=== PATIENT | female | born 1980 | race Caucasian/White ===

== ENCOUNTER → 2017-11-12 11:23 | Outpatient (CLI) | payer MEDICAID, SELFPAY ==
[2017-11-16 12:48] LABS: HPV APTIMA, High Risk Negative (Negative)
== END ==
PROVIDERS: Family Provider Internal Medicine; PCP Internal Medicine; Visit Provider Obstetrics & Gynecology
DX: Z01.419 Encounter for gynecological examination (general) (routine) without abnormal findings (principal); Z12.4 Encounter for screening for malignant neoplasm of cervix
CPT/HCPCS: 88175; G0145

== ENCOUNTER → 2018-02-06 10:02 | Outpatient (CLI) | payer MEDICAID, SELFPAY ==
--- NOTE | 2018-02-06 10:04 | US_ITS ---
STUDY: ULTRASOUND OF THE FEMALE PELVIS - COMPLETE REASON FOR EXAM: Female, 37 years old. Dysfunctional uterine bleeding. LMP: January 29, 2018. TECHNIQUE: Transabdominal and Transvaginal TECHNICAL QUALITY: Adequate. COMPARISON: None. FINDINGS: The uterus is anteverted and is in a midline position. The uterus measures 7.5 cm x 4.4 cm x 3.6 cm. Normal uterine cervix. The endometrium measures 5.0 mm in thickness, and is hyperechoic. There is no demonstrated endometrial mass. There is no demonstrated myometrial mass. I.U.D. - The patient does not have an I.U.D. The right ovary is visualized. The right ovary measures 3.1 cm x 2.4 cm x 1.9 cm. There is no right ovarian cyst or ovarian mass. There is no visualized right adnexal mass or complex lesion. There is normal arterial and normal venous vascularity. The left ovary is visualized. The left ovary measures 2.9 cm x 2.8 cm x 2.0 cm. There is a 2.1 cm x 2.2 cm x 1.1 cm cyst in the left ovary. Focal calcification is seen in the right ovary. There is no visualized left adnexal mass or complex lesion. There is normal arterial and normal venous vascularity. There is no fluid in the cul-de-sac. The pre void volume of the bladder was 296 ml. Polycystic ovary disease: No. US/Pelvic (Non ) IMPRESSION: 2.1 cm x 2.2 cm x 1.1 cm cyst in the left kidney. Electronically Signed: Angel Ramon MD at 14:27 EDT Tel [phone], Service support ,
--- NOTE | 2018-02-06 10:38 | US_ITS ---
STUDY: ULTRASOUND OF THE FEMALE PELVIS - COMPLETE REASON FOR EXAM: Female, 37 years old. Dysfunctional uterine bleeding. LMP: January 29, 2018. TECHNIQUE: Transabdominal and Transvaginal TECHNICAL QUALITY: Adequate. COMPARISON: None. FINDINGS: The uterus is anteverted and is in a midline position. The uterus measures 7.5 cm x 4.4 cm x 3.6 cm. Normal uterine cervix. The endometrium measures 5.0 mm in thickness, and is hyperechoic. There is no demonstrated endometrial mass. There is no demonstrated myometrial mass. I.U.D. - The patient does not have an I.U.D. The right ovary is visualized. The right ovary measures 3.1 cm x 2.4 cm x 1.9 cm. There is no right ovarian cyst or ovarian mass. There is no visualized right adnexal mass or complex lesion. There is normal arterial and normal venous vascularity. The left ovary is visualized. The left ovary measures 2.9 cm x 2.8 cm x 2.0 cm. There is a 2.1 cm x 2.2 cm x 1.1 cm cyst in the left ovary. Focal calcification is seen in the right ovary. There is no visualized left adnexal mass or complex lesion. There is normal arterial and normal venous vascularity. There is no fluid in the cul-de-sac. The pre void volume of the bladder was 296 ml. Polycystic ovary disease: No. US/Transvaginal Non- IMPRESSION: 2.1 cm x 2.2 cm x 1.1 cm cyst in the left kidney. Electronically Signed: Anegl Ramon MD at 14:27 EDT Tel [phone], Service support ,
== END ==
PROVIDERS: Family Provider Internal Medicine; PCP Internal Medicine; Visit Provider Obstetrics & Gynecology
DX: N93.8 Other specified abnormal uterine and vaginal bleeding (principal)
CPT/HCPCS: 76830; 76856; 93976

== ENCOUNTER 2018-03-27 05:46 | Day surgery (SDC) | payer MEDICAID, SELFPAY ==
[2018-03-13 13:02] VITALS: BP 120/70; PULSE 93; RESP 16; TEMP 36.8; O2SAT 99; BMI 18.9
[2018-03-13 15:24] LABS: Hematocrit 43.6 % (37-47); Hemoglobin 14.3 g/dl (12.0-15.0); Mean Corp Hgb Conc 32.8 g/gl (32-36); Mean Corpuscular Hgb 30.5 pg (27.0-32.0); Mean Platelet Vol. 10.6 fl (6.2-12.0); Platelet Count 256 K/mm3 (150-450); RBC Distribution Width CV 12.1 % (11.6-14.6); Red Blood Count 4.69 M/mm3 (4.2-5.4); Scan Indicated on CBC? Y/N NO
[2018-03-13 15:33] LABS: International Normalized Ratio 1.1; Prothrombin Time (Protime)PT. 14.2 SECONDS (11.7-14.9)
[2018-03-13 15:34] LABS: Partial Thromboplast Time 31.2 Seconds (24.1-36.2)
[2018-03-13 15:56] LABS: AST(SGOT) 12 U/L (15-37); Alanine Aminotransfer ALT/SGPT 16 U/L (13-56); Alkaline Phosphatase 52 U/L (45-117); Anion Gap 6 (5-15); BUN 10 mg/dL (7-18); BUN/Creat Ratio 12.8 RATIO (10-20); Bilirubin, Direct 0.15 mg/dL (0.00-0.30); Calcium,Total 8.6 mg/dL (8.5-10.1); Chloride 106 mmol/L (98-107); Creatinine, Serum 0.78 mg/dL (0.55-1.02); EST Glomerular Filtration Rate 89 mL/min (>60); Est Glom Filt Rate - Afr Amer 107 mL/min (>60); Estimated Creatinine Clearance 83.74 ml/min; Globulin 2.9 g/dL (2.2-4.2); Glucose 54 mg/dL (74-106); Potassium 4.1 mmol/L (3.5-5.1); Protein, Total 6.9 g/dL (6.4-8.2); Sodium Level 141 mmol/L (136-145)
[2018-03-27] VITALS (12 sets, daily range): BP systolic 104–125; BP diastolic 59–90; PULSE 65–115; RESP 16–18; TEMP 36.4–36.9; O2SAT 97–100; BMI 18.9
[2018-03-27 06:16] LABS: Internal QC Validated? YES +Cl - CLEAR BKGD; Pregnancy, Urine Negative Negative
[2018-03-27 06:31] LABS: Anion Gap 8 (5-15); BUN 10 mg/dL (7-18); BUN/Creat Ratio 11.4 RATIO (10-20); Calcium,Total 8.7 mg/dL (8.5-10.1); Chloride 107 mmol/L (98-107); Creatinine, Serum 0.88 mg/dL (0.55-1.02); EST Glomerular Filtration Rate 77 mL/min (>60); Est Glom Filt Rate - Afr Amer 93 mL/min (>60); Estimated Creatinine Clearance 74.22 ml/min; Glucose 74 mg/dL (74-106); Potassium 3.7 mmol/L (3.5-5.1); Sodium Level 141 mmol/L (136-145)
[2018-03-27] MEDS: Heparin Injection (Vial) 5,000 UNIT/ML VIAL 5000 UNIT SC ×3 (06:31→21:07)
--- NOTE | 2018-03-27 07:30 | HYST_PTH ---
PATIENT: FATOUMATA SALINAS [place] [facility] [id number] AGE/SX: 37/F ROOM: RE03/27/[address]: Dr. Mone Barahona MD : 1980 BED: DIS: 03/28/2018 SPEC #: [id number] RECD: 03/27/18 11:05 STATUS: SARAH JESENIA #: [id number] LORI: 03/27/18 07:[address]: Mone Barahona DEPT: SURGICAL PATHOLOGY RECD BY: Wally Pacheco ENTERED: 03/27/18 11:54 SP TYPE: HYSTERECT OTHR DR: Dr. Adrianne Reeves DO Tissues: Uterus, NOS Procedures: Surgery Specimen Level V HEADER OPERATION: Laparoscopic robotic assisted vaginal hysterectomy, bilateral salpingectomy PRE-OP DIAGNOSIS: Excessive and frequent menstruation with irregular cycle TISSUE SUBMITTED: Uterus, cervix, bilateral fallopian tubes MICROSCOPIC DIAGNOSIS Uterus, cervix and bilateral fallopian tubes, vaginal hysterectomy and bilateral salpingectomy: Cervix ? mild chronic cystic cervicitis. Endometrium ? weakly proliferative endometrium. Myometrium - no pathologic diagnosis. Bilateral fallopian tubes - no pathologic diagnosis. Left paratubal cyst. SJ:agustina 03/28/18 MICROSCOPIC DESCRIPTION Slides are reviewed. GROSS DESCRIPTION Received in fixative is one container labeled with the patient's name and designated uterus. The specimen consists of a uterus with attached cervix and attached right and left fallopian tubes. The uterus with cervix measures 8.3 x 5 x 4 and weighs 66 gm. The ectocervix is oval. No ectocervical mass lesions are identified. The endocervical canal measures 3.4 cm in length and is grossly unremarkable. The elongated endometrium measures 3 x 1.5 cm. The endometrium is light brown, velvety and glistening and measures up to 0.1 cm in thickness. The myometrium measures 2 cm in average thickness and is free of mass lesions. The right and left fallopian tubes are similar in appearance with both averaging 5.5 cm in length and 0.6 cm in average diameter. Both right and left fallopian tubes have normal fimbriated ends. No mass lesions are identified. The soft tissue adjacent to the left fallopian tube contains a smooth, glistening cyst containing clear fluid. The cyst measures 0.8 cm in greatest dimension. Picture Painter sections are submitted as follows: 1 - anterior cervix, 2 - posterior cervix, 3 & 4 - anterior uterine wall, 5 & 6 - posterior uterine wall, 7 ? right fallopian tube, 8 ? left fallopian tube and paratubal cyst. / AM:agustina 03/27/18 TC:3 CPT: 24881
--- NOTE | 2018-03-27 09:01 | PCM.OPRPT ---
Problem List (1) Irregular menstrual bleeding Status: Acute Report of Operation Date of Procedure: 03/27/18 Pre-Operative Diagnosis: Irregular menses Post-Operative Diagnosis: Same Surgery/Procedure Performed:: Robotic assisted vaginal hysterectomy with bilateral salpingectomy Description of Surgical Findings:: Uterus was sounded to approximately 8-1/2 cm in a anteflexed position bilateral adnexa were noted to be within normal limits and fully mobile upon entry into the abdominal cavity via the robot it was noted that the left ovary had a luteal phase cyst present and other ovary was noted to be normal. Uterus was noted to be fully mobile and appropriate size. Was notation of scar tissue in the right upper quadrant upon entry into the abdominal cavity from the liver to the abdominal sidewall of a mild nature body cleaner: Thelma Pearl Type of Anesthesia:: General Anesthesiologist: Jose Dunaway Special Medications: Clindamycin IV and gentamicin IV both preoperatively Specimen's removed: cervix, uterus, bilateral fallopian tubes Drains: None Estimated Blood Loss (mL): 150 cc Fluids Replaced: Lactated Ringer's Description of Procedure: Patient presented to the preoperative area after undergoing a bowel prep in the home setting. Basic metabolic panel was noted to be stable before entering to the surgery suite. Upon entry into the surgery suite placed was placed on the sandbag along with monitor placement. She underwent a general anesthetic. Patient was prepped and draped in the normal sterile fashion. She had been placed in dorsal lithotomy position via the Montez stirrups. Test was performed and noted to be without movement of the patient. The Pitts catheter was inserted after patient underwent a general anesthetic followed by weight is taken to the vagina. 2 stitches of 0 Vicryl suture were placed at the 3 and 9 o'clock position to anchor to the medium-sized V care which was assembled to the cervix for uterine manipulation. After V care was placed all instruments removed from the vagina except for the Pitts catheter and the V care. Changing gloves and moving to the top of the patient notation of the fundal area of the uterus was made and 12 cm above this area was notation of placement of the camera. An 8 mm incision was made with the scalpel supraumbilically and Veress needle was placed through this incision. Water test verified a placement into the abdominal cavity. Removal of the Veress needle was replaced by the 8 mm camera nondisposable robotic trocar. Verification of entry into the abdominal cavity occurred with camera placement. Left and right robotic arms were then sequentially placed under direct visualization in the left and right mid quadrants and hemostasis was noted. Each of these trochars were 8 mm nondisposable robotic trocar types. The left upper quadrant had a 5 mm direct placement of a disposable trocar for my pathology assistant in the right upper quadrant had a 8 mm air seal trocar placement under direct visualization also for my pathology assistant. At this point in time the robot was docked to the patient's side in a parallel fashion. The camera was assembled to the supraumbilical trocar while the left robotic arm became the vessel sealer in the right robotic arm became the monopolar mario. At this point in time I the gowned and moved to the console of the robot to take over control of the robot. Normal anatomy was evaluated and ureters noted be well away from the area of anticipated surgery. The left round ligament was grasped cauterized and transected the broad ligament into anterior posterior leaves. The left fallopian tube was then grasped and the mesosalpinx was cauterized and transected followed by cauterization and transection of the uterine ovarian ligament. Further development of the broad ligament in skeletonization of the uterine vasculature occurred on the patient's left side the left uterine vessels were then cauterized and transected. Trying to the patient's right side the right round ligament was then grasped cauterized and transected the broad ligament into anterior posterior leaves and further developing the vesicouterine peritoneum the right fallopian tube was transected with the mesosalpinx by cauterization and transection followed by the cauterization and transection of the uterine ovarian ligament on the patient's right side. This led to further skeletonization of the uterine vasculature on the patient's right side the right area of the right uterine vasculature was then cauterized and transected. The cardinal ligaments and uterosacral ligaments were cauterized transected bilaterally for the development of the vesicouterine peritoneum occurred incision at the 6:00 region of the cervix occurred which was the posterior cul-de-sac region and this was carried in a counterclockwise fashion to the 12:00 region that was then continued from 12:00 region in the continued counterclockwise fashion down to the 6:00 region for complete transection of the cervix away from the vaginal cuff region. The cervix uterus bilateral fallopian tubes were then removed through the vagina. Irrigation of the pelvis occurred by my pathology assistant and vaginal tampon had been placed to continue the pneumoperitoneum. The instruments were then changed to the left robotic arm becoming the progress in the right robotic arm becoming the Oral suture cut. My pathology assistant sequentially gave me a 15 cm 0 Vicryl sutures the first being placed to the ureteral sacral cardinal complex in the vagina for an anchor stitch this needle was removed and the exact same stitch with the exact same fashion was used on the patient's right side as an anchor stitch of the vaginal cuff to the uterosacral cardinal complex. 2 additional 0 Vicryl sutures were then placed by my pathology assistant into the pelvis sequentially to the [id number] stitches at the vaginal cuff could occur for vaginal cuff closure. All needles were accounted for immediately after removal by my pathology assistant. Irrigation of the pelvis once again occurred peristalsis of the bilateral ureters was noted in their positions were well away from the area of operation. Oriana was then placed into the pelvis and placed at the vaginal cuff region for added hemostasis it was at this point in time and all instruments were removed from the abdominal cavity by removal of all trochars. Release of the CO2 gas to have been placed into the abdominal cavity was also released the incisions ?5 were closed with 4-0 Monocryl in a subcuticular fashion. The sponge instrument and needle counts were correct ?2. Grafts/Implants Used: None - Complications None - Admit VTE Documentation VTE Present on Admission: No VTE Mechan Device Prophylaxis: SCD's VTE Pharm Prophylaxis ordered?: Yes
--- NOTE | 2018-03-27 09:11 | OP.PCM_ITS ---
Problem List (1) Irregular menstrual bleeding Status: Acute Report of Operation Date of Procedure: 03/27/18 Pre-Operative Diagnosis: Irregular menses Post-Operative Diagnosis: Same Surgery/Procedure Performed:: Robotic assisted vaginal hysterectomy with bilateral salpingectomy Description of Surgical Findings:: Uterus was sounded to approximately 8-1/2 cm in a anteflexed position bilateral adnexa were noted to be within normal limits and fully mobile upon entry into the abdominal cavity via the robot it was noted that the left ovary had a luteal phase cyst present and other ovary was noted to be normal. Uterus was noted to be fully mobile and appropriate size. Was notation of scar tissue in the right upper quadrant upon entry into the abdominal cavity from the liver to the abdominal sidewall of a mild nature landscaping supervisor: Thelma Pearl Type of Anesthesia:: General Anesthesiologist: Jose Dunaway Special Medications: Clindamycin IV and gentamicin IV both preoperatively Specimen's removed: cervix, uterus, bilateral fallopian tubes Drains: None Estimated Blood Loss (mL): 150 cc Fluids Replaced: Lactated Ringer's Description of Procedure: Patient presented to the preoperative area after undergoing a bowel prep in the home setting. Basic metabolic panel was noted to be stable before entering to the surgery suite. Upon entry into the surgery suite placed was placed on the sandbag along with monitor placement. She underwent a general anesthetic. Patient was prepped and draped in the normal sterile fashion. She had been placed in dorsal lithotomy position via the Montez stirrups. Test was performed and noted to be without movement of the patient. The Pitts catheter was inserted after patient underwent a general anesthetic followed by weight is taken to the vagina. 2 stitches of 0 Vicryl suture were placed at the 3 and 9 o 'clock position to anchor to the medium-sized V care which was assembled to the cervix for uterine manipulation. After V care was placed all instruments removed from the vagina except for the Pitts catheter and the V care. Changing gloves and moving to the top of the patient notation of the fundal area of the uterus was made and 12 cm above this area was notation of placement of the camera. An 8 mm incision was made with the scalpel supraumbilically and Veress needle was placed through this incision. Water test verified a placement into the abdominal cavity. Removal of the Veress needle was replaced by the 8 mm camera nondisposable robotic trocar. Verification of entry into the abdominal cavity occurred with camera placement. Left and right robotic arms were then sequentially placed under direct visualization in the left and right mid quadrants and hemostasis was noted. Each of these trochars were 8 mm nondisposable robotic trocar types. The left upper quadrant had a 5 mm direct placement of a disposable trocar for my special education assistant in the right upper quadrant had a 8 mm air seal trocar placement under direct visualization also for my special education assistant. At this point in time the robot was docked to the patient's side in a parallel fashion. The camera was assembled to the supraumbilical trocar while the left robotic arm became the vessel sealer in the right robotic arm became the monopolar mario. At this point in time I the gowned and moved to the console of the robot to take over control of the robot. Normal anatomy was evaluated and ureters noted be well away from the area of anticipated surgery. The left round ligament was grasped cauterized and transected the broad ligament into anterior posterior leaves. The left fallopian tube was then grasped and the mesosalpinx was cauterized and transected followed by cauterization and transection of the uterine ovarian ligament. Further development of the broad ligament in skeletonization of the uterine vasculature occurred on the patient's left side the left uterine vessels were then cauterized and transected. Trying to the patient's right side the right round ligament was then grasped cauterized and transected the broad ligament into anterior posterior leaves and further developing the vesicouterine peritoneum the right fallopian tube was transected with the mesosalpinx by cauterization and transection followed by the cauterization and transection of the uterine ovarian ligament on the patient's right side. This led to further skeletonization of the uterine vasculature on the patient's right side the right area of the right uterine vasculature was then cauterized and transected. The cardinal ligaments and uterosacral ligaments were cauterized transected bilaterally for the development of the vesicouterine peritoneum occurred incision at the 6:00 region of the cervix occurred which was the posterior cul-de-sac region and this was carried in a counterclockwise fashion to the 12:00 region that was then continued from 12:00 region in the continued counterclockwise fashion down to the 6:00 region for complete transection of the cervix away from the vaginal cuff region. The cervix uterus bilateral fallopian tubes were then removed through the vagina. Irrigation of the pelvis occurred by my special education assistant and vaginal tampon had been placed to continue the pneumoperitoneum. The instruments were then changed to the left robotic arm becoming the progress in the right robotic arm becoming the Oral suture cut. My special education assistant sequentially gave me a 15 cm 0 Vicryl sutures the first being placed to the ureteral sacral cardinal complex in the vagina for an anchor stitch this needle was removed and the exact same stitch with the exact same fashion was used on the patient's right side as an anchor stitch of the vaginal cuff to the uterosacral cardinal complex. 2 additional 0 Vicryl sutures were then placed by my special education assistant into the pelvis sequentially to the [id number] stitches at the vaginal cuff could occur for vaginal cuff closure. All needles were accounted for immediately after removal by my special education assistant. Irrigation of the pelvis once again occurred peristalsis of the bilateral ureters was noted in their positions were well away from the area of operation. Oriana was then placed into the pelvis and placed at the vaginal cuff region for added hemostasis it was at this point in time and all instruments were removed from the abdominal cavity by removal of all trochars. Release of the CO2 gas to have been placed into the abdominal cavity was also released the incisions ?5 were closed with 4-0 Monocryl in a subcuticular fashion. The sponge instrument and needle counts were correct ?2. Grafts/Implants Used: None - Complications None - Admit VTE Documentation VTE Present on Admission: No VTE Mechan Device Prophylaxis: SCD's VTE Pharm Prophylaxis ordered?: Yes
[2018-03-27] MEDS: Morphine 2 MG/ML Syringe IV ×2 (12:08→15:32)
[2018-03-27] MEDS: Phenazopyridine 95 MG Tablet 190 MG PO ×2 (15:31→20:59)
[2018-03-27] MEDS: Lactated Ringers 1,000 ML 125 ML IV (15:31)
[2018-03-27] MEDS: Metoclopramide 10 MG/2 ML Vial IV ×2 (15:31→21:23)
[2018-03-27] MEDS: oxyCODONE 5 MG Tablet PO (20:58)
[2018-03-28 03:00] VITALS: BP 99/59; PULSE 68; RESP 16; TEMP 36.9; O2SAT 98
[2018-03-28] MEDS: oxyCODONE 5 MG Tablet PO ×3 (05:06→14:48)
[2018-03-28] MEDS: Phenazopyridine 95 MG Tablet 190 MG PO ×2 (05:07→14:48)
[2018-03-28] MEDS: Heparin Injection (Vial) 5,000 UNIT/ML VIAL 5000 UNIT SC (05:09)
[2018-03-28] MEDS: Metoclopramide 10 MG/2 ML Vial IV ×2 (05:09→14:49)
[2018-03-28 07:11] VITALS: O2SAT 96
--- NOTE | 2018-03-28 09:25 | DCINST_ITS ---
Discharge Diet: - - no beef, pork or fresh vegetables 2 weeks after surgery Discharge Activity: Return to Normal Activity, May Not Drive - while taking narcotic pain medications., May Shower, - - Ambulate often with periods of rest in between May shower in (days): 0 - TODAY May resume sexual activity in: 6-8 weeks Weight Bearing Status: Full weight bearing Lifting Restrictions: 5 pounds Call your doctor if your incision/area has: Continuous Slow Oozing, Sudden Increased Bleeding, Increased Pain/ Swelling, Increased Redness, Foul Smelling Discharge Call your doctor if you observe: Fever of 101 or Higher, Inability to urinate, Inability to have a bowel movement, Using more than one pad per hour Remove Dressing in (days):: 0 - TODAY. Leave incisions open to air Cleanse incision/area with: Soap & Water Allergies/Adverse Reactions: Allergies amitriptyline Allergy (Verified 08/29/17 09:53) Other amoxicillin [From Augmentin] Allergy (Verified 03/13/18 12:53) Hives cephalexin monohydrate [From Keflex] Allergy (Verified 08/29/17 09:53) Hives clavulanic acid [From Augmentin] Allergy (Verified 03/13/18 12:53) Hives gabapentin [From Neurontin] Allergy (Verified 08/29/17 09:53) Other levofloxacin [From Levaquin] Allergy (Verified 03/13/18 12:53) Hives Penicillins Allergy (Verified 08/29/17 09:53) Hives sulfamethoxazole [From Bactrim] Allergy (Verified 08/29/17 09:53) Other trimethoprim [From Bactrim] Allergy (Verified 08/29/17 09:53) Other Medications to take at Discharge Albuterol IH (ProAir) [Proair Hfa (SP)Vent Pts] 1 - 2 puff INHALATION Q6H PRN PRN 08/29/17 Cyclobenzaprine [Flexeril] 10 mg PO DAILY 08/29/17 Esomeprazole Mag Trihydrate [Nexium] 40 mg PO DAILY 08/29/17 Lorazepam [Ativan] 0.5 mg PO DAILY PRN PRN 08/29/17 Norethindrone 0.35 mg PO DAILY 08/29/17 Ibuprofen 600 mg PO TID PRN #30 tab 09/05/17 Aspirin [Aspirin, Baby] 81 mg PO DAILY@0800 03/13/18 Primary Care Physician: Adrianne Reeves DO [Primary Care Provider] - Test Results: Test results from this visit will be discussed in further detail at your follow- up appointment, if applicable. Please Follow Up With: Mone Barahona MD When: schedule postop appointment for next March,
[2018-03-28 10:00] VITALS: BP 123/69; PULSE 83; RESP 18; TEMP 37.8; O2SAT 100
[2018-03-28 10:14] LABS: Basophil% 0.1 % (0-1); Differential Indicated SCAN CRITERIA MET; Hematocrit 38.3 % (37-47); Hemoglobin 12.9 g/dl (12.0-15.0); Lymphocyte % 5.8 % (19-41); Mean Corp Hgb Conc 33.7 g/gl (32-36); Mean Corpuscular Hgb 30.9 pg (27.0-32.0); Mean Corpuscular Volume 91.6 fL (81-99); Mean Platelet Vol. 10.9 fl (6.2-12.0); Monocyte% 5.6 % (0-10); Neutrophil % 88.3 % (47-70); POSITIVE COUNT NO; POSITIVE DIFFERENTIAL YES; POSITIVE MORPHOLOGY NO; Platelet Count 233 K/mm3 (150-450); RBC Distribution Width CV 11.8 % (11.6-14.6); RBC Distribution Width SD 39.4 fl (35.1-43.9); Red Blood Count 4.18 M/mm3 (4.2-5.4); White Blood Count 27.7 K/mm3 (4.4-11.0)
[2018-03-28 10:15] LABS: Absolute Lymphocyte Count 1.54 X10^3/ul (0.83-4.51); Absolute Neutrophil Count 24.5 X10^3/uL (2.0-7.7); Eosinophil# 0.03 X10^3/uL; Neutrophil # 24.45 X10^3/uL (2.7-7.7)
[2018-03-28 10:23] LABS: Color, Urine Amber (Yellow); Glucose, Dipstick Normal (Normal); Ketone-Dipstick 5 mg/dl (Negative); Leukocyte Esterase-Dipstick Negative /ul (Negative); Nitrite-Dipstick Positive (Negative); Occult Blood-Urine 250 /ul (Negative); Protein-Dipstick 15 mg/dl (Negative); Urine Clarity Sl. Cloudy (Clear); Urine Urobilinogen 8 mg/dl (Normal)
[2018-03-28 10:24] LABS: Absolute Lymphocyte Count 1.91 X10^3/ul (0.83-4.51); Absolute Neutrophil Count 24.1 X10^3/uL (2.0-7.7); Basophil# 0.03 X10^3/uL; Basophil% 0.1 % (0-1); Hematocrit 39.7 % (37-47); Hemoglobin 13.5 g/dl (12.0-15.0); Lymphocyte # 1.91 X10^3/ul (4.0); Lymphocyte % 6.9 % (19-41); Mean Corpuscular Volume 91.1 fL (81-99); Mean Platelet Vol. 10.6 fl (6.2-12.0); Monocyte# 1.45 X10^3/uL; Monocyte% 5.3 % (0-10); Neutrophil # 24.09 X10^3/uL (2.7-7.7); Neutrophil % 87.6 % (47-70); Platelet Count 236 K/mm3 (150-450); RBC Distribution Width CV 11.9 % (11.6-14.6); RBC Distribution Width SD 39.8 fl (35.1-43.9); Red Blood Count 4.36 M/mm3 (4.2-5.4); White Blood Count 27.5 K/mm3 (4.4-11.0)
[2018-03-28 10:24] LABS: Urine Bilirubin Dipstick 3 mg/dL (Negative)
[2018-03-28 10:25] LABS: POSITIVE COUNT NO; POSITIVE DIFFERENTIAL YES; POSITIVE MORPHOLOGY NO
[2018-03-28 10:26] LABS: Differential Indicated SCAN CRITERIA MET
[2018-03-28 10:34] LABS: Bacteria 1+ /hpf (None Seen); Red Blood Cells-Urine 0-5 SEEN /hpf (0-5); Squamous Epithelial Cells - UA 5-10 SEEN /hpf (5-10); White Blood Cells 0-5 SEEN /hpf (0-5)
[2018-03-28 10:35] LABS: Mucous, Urine RARE /hpf (<or=2+)
--- NOTE | 2018-03-28 10:36 | PN.OBGYN_ITS ---
Patient Problems: Active and Suspected Problems Irregular menstrual bleeding (Acute) Subjective: Feels well. Ambulating without difficulty. Tolerating diet with no nausea and no vomiting. Flatus production last pm. Urinating without difficulty. - Physical Exam General: No apparent distress, Well developed, Well nourished HEENT: PERRLA, EOMI, Normocephalic Oral: Moist Mucosa Neck: Supple, No Nuchal Rigidity Lungs: Clear to auscultation - bilaterally, Normal air movement, No wheeze, No rales Cardiovascular: Regular rate, Regular Rhythm Abdomen: Bowel Sounds Present, Soft, Non Tender, Non-Distended - Incisions with bandages x 5 are dry Extremities: No edema, No Calf Tenderness Skin: No rashes Musculoskeletal: No Muscle Wasting Neurological: Cranial nerves II-XII grossly intact Vital Signs Temp Pulse Resp BP Pulse Ox 98.5 F 68 16 99/59 L 96 03/28/18 03:00 03/28/18 03:00 03/28/18 03:00 03/28/18 03:00 03/28/18 07:11 Oxygen Delivery Method Room Air Weight: 117 lb 4.575 oz Body Mass Index (BMI) 18.9 Intake and Output for Last 24 Hours 03/26/18 03/27/18 03/28/18 23:59 23:59 23:59 Intake Total 4006 / 4006 1521 / 1521 Output Total 1800 / 1800 1900 / 1900 Balance 2206 / 2206 -379 / -379 Laboratory Tests Past 24 Hrs 03/28/18 03/28/18 03/28/18 06:48 06:48 06:48 WBC Cancelled Cancelled 27.7 H Corrected WBC Cancelled Cancelled RBC Cancelled Cancelled 4.18 L Hgb Cancelled Cancelled 12.9 Hct Cancelled Cancelled 38.3 MCV Cancelled Cancelled 91.6 MCH Cancelled Cancelled 30.9 MCHC Cancelled Cancelled 33.7 RDW Cancelled Cancelled 11.8 RDW Differential Cancelled Cancelled 39.4 Plt Count Cancelled Cancelled 233 MPV Cancelled Cancelled 10.9 Immature Gran % (Auto) Cancelled 0.200 Neut % (Auto) Cancelled 88.3 H Lymph % (Auto) Cancelled 5.8 L [place] % (Auto) Cancelled 5.6 Eos % (Auto) Cancelled 0.0 Baso % (Auto) Cancelled 0.1 Immature Gran # (Auto) Cancelled Absolute Neuts (auto) Cancelled 24.5 H Absolute Lymphs (auto) Cancelled 1.54 Absolute Monos (auto) Cancelled Total Counted Cancelled Not Reportable Neutrophils % (Manual) Cancelled Band Neutrophils % Cancelled Lymphocytes % (Manual) Cancelled Monocytes % (Manual) Cancelled Eosinophils % (Manual) Cancelled Basophils % (Manual) Cancelled Metamyelocytes % Cancelled Myelocytes % Cancelled Promyelocytes % Cancelled Blast Cells % Cancelled Plasma Cell % (Manual) Cancelled Other Cells % Cancelled Lymphocytes # Cancelled Nucleated RBCs/100 WBC Cancelled Differential Comment Cancelled Cancelled Diff Path Review Cancelled Cancelled May foll Hypersegmented Neuts Cancelled Atypical Lymphocytes Cancelled Reactive Lymphocytes Cancelled Smudge Cells Cancelled Eosinophilia # Cancelled Basophilia # Cancelled Toxic Granulation Cancelled Dohle Bodies Cancelled Ryan Rods Cancelled Platelet Estimate Cancelled Plt Morphology Comment Cancelled RBC Morphology Cancelled Polychromasia Cancelled Hypochromasia Cancelled Poikilocytosis Cancelled Basophilic Stippling Cancelled Anisocytosis Cancelled Microcytosis Cancelled Macrocytosis Cancelled Spherocytes Cancelled Sickle Cells Cancelled Target Cells Cancelled Tear Drop Cells Cancelled Ovalocytes Cancelled Stomatocytes Cancelled [place] Bodies Cancelled Joseph Cells Cancelled Bite Cells Cancelled Acanthocytes (Spur) Cancelled Rouleaux Cancelled Schistocytes Cancelled Urine Color Urine Clarity Urine pH Ur Specific [place] Urine Protein Urine Glucose (UA) Urine Ketones Urine Occult Blood Urine Nitrite Urine Bilirubin Urine Urobilinogen Ur Leukocyte Esterase Urine RBC Urine WBC Ur Squamous Epith Cells Urine Bacteria Urine Mucus 03/28/18 03/28/18 03/28/18 09:35 10:05 Unknown WBC 27.5 H Cancelled Corrected WBC Cancelled RBC 4.36 Cancelled Hgb 13.5 Cancelled Hct 39.7 Cancelled MCV 91.1 Cancelled MCH 31.0 Cancelled MCHC 34.0 Cancelled RDW 11.9 Cancelled RDW Differential 39.8 Cancelled Plt Count 236 Cancelled MPV 10.6 Cancelled Immature Gran % (Auto) 0.100 Cancelled Neut % (Auto) 87.6 H Cancelled Lymph % (Auto) 6.9 L Cancelled [place] % (Auto) 5.3 Cancelled Eos % (Auto) 0.0 Cancelled Baso % (Auto) 0.1 Cancelled Immature Gran # (Auto) Cancelled Absolute Neuts (auto) 24.1 H Cancelled Absolute Lymphs (auto) 1.91 Cancelled Absolute Monos (auto) Cancelled Total Counted Pending Cancelled Neutrophils % (Manual) Cancelled Band Neutrophils % Cancelled Lymphocytes % (Manual) Cancelled Monocytes % (Manual) Cancelled Eosinophils % (Manual) Cancelled Basophils % (Manual) Cancelled Metamyelocytes % Cancelled Myelocytes % Cancelled Promyelocytes % Cancelled Blast Cells % Cancelled Plasma Cell % (Manual) Cancelled Other Cells % Cancelled Lymphocytes # Cancelled Nucleated RBCs/100 WBC Cancelled Differential Comment Cancelled Diff Path Review Cancelled Hypersegmented Neuts Cancelled Atypical Lymphocytes Cancelled Reactive Lymphocytes Cancelled Smudge Cells Cancelled Eosinophilia # Cancelled Basophilia # Cancelled Toxic Granulation Cancelled Dohle Bodies Cancelled Ryan Rods Cancelled Platelet Estimate Cancelled Plt Morphology Comment Cancelled RBC Morphology Cancelled Polychromasia Cancelled Hypochromasia Cancelled Poikilocytosis Cancelled Basophilic Stippling Cancelled Anisocytosis Cancelled Microcytosis Cancelled Macrocytosis Cancelled Spherocytes Cancelled Sickle Cells Cancelled Target Cells Cancelled Tear Drop Cells Cancelled Ovalocytes Cancelled Stomatocytes Cancelled [place] Bodies Cancelled [place] Cells Cancelled Bite Cells Cancelled Acanthocytes (Spur) Cancelled Rouleaux Cancelled Schistocytes Cancelled Urine Color [place] Urine Clarity Sl. Cloudy Urine pH 5.0 Ur Specific [place] 1.010 Urine Protein 15 H Urine Glucose (UA) Normal Urine Ketones 5 H Urine Occult Blood 250 H Urine Nitrite Positive H Urine Bilirubin 3 H Urine Urobilinogen 8 H Ur Leukocyte Esterase Negative Urine RBC Pending Urine WBC Pending Ur Squamous Epith Cells Pending Urine Bacteria Pending Urine Mucus Pending Medical Necessity - Tobacco Use Smoking Status: Current every day smoker Assessment/Plan All Active Problems Irregular menstrual bleeding (Acute) Abnormal uterine bleeding (AUB) (Acute) 1. POD #1 - Robotic assisted hysterectomy, bilateral salpingectomy ambulating well tolerating po intake for diet and pain meds voiding well glycerin suppository to encourage more flatus blood count is stable 2. Elevated WBC no fever except a temperature elevation by nursing thought to be due to room temperature CBC was repeated urinalysis is pending repeat vitals anticipate discharge to home with temperature monitoring, repeat CBC next week unless source of elevation of WBC is found notation of Decadron preop by anesthesia 3. Clarification of no DVT history 4. Abdominal Aortic dissection remotely restart daily aspirin ambulation encouraged tobacco cessation encouraged signs and symptoms of DVT and PE reviewed
[2018-03-28] MEDS: Glycerin 1 Suppository 1 SUPP RECTAL (11:00)
[2018-03-28 13:09] LABS: Pathologist Review Reviewed
--- NOTE | 2018-03-28 14:54 | PCM.PN.BLA ---
Progress Note Urinalysis is reviewed. 1+ bacteria. Send for culture. Discussed with patient. Plan home Macrobid until culture results. First dose Macrobid prior to discharge. + Burping. Flatus production previous. Ambulating well. Eating well. Oral meds tolerated. Desires discharge to home. Repeat CBC next week. Temperature monitoring in home setting. Diet reviewed again.
[2018-03-28 15:50] VITALS: BP 121/73; PULSE 100; RESP 20; TEMP 38; O2SAT 96
[2018-03-31 13:42] LABS: AST(SGOT) 21 U/L (15-37); Alanine Aminotransfer ALT/SGPT 18 U/L (13-56); Albumin, Serum 5.1 g/dL (3.2-5.0); Alkaline Phosphatase 57 U/L (45-117); Bilirubin, Direct 0.31 mg/dL (0.00-0.30); Protein, Total 8.1 g/dL (6.4-8.2)
== END 2018-03-28 15:57 | disposition home or self-care (01) ==
LOC: SDC 05:46 → AC 05:47 → MS3 03-28 06:48
PROVIDERS: Obstetrics & Gynecology; Family Provider Internal Medicine; PCP Internal Medicine; Visit Provider Obstetrics & Gynecology
PROC: 0UT90ZZ Resection of Uterus, Open Approach (ICD-10-PCS; CPT 58571; principal; 2018-03-27 07:10)
DX: N72 Inflammatory disease of cervix uteri (principal); N83.8 Other noninflammatory disorders of ovary, fallopian tube and broad ligament; D72.829 Elevated white blood cell count, unspecified; E06.9 Thyroiditis, unspecified; F17.200 Nicotine dependence, unspecified, uncomplicated; K21.9 Gastro-esophageal reflux disease without esophagitis; F41.9 Anxiety disorder, unspecified; J45.909 Unspecified asthma, uncomplicated; Z79.82 Long term (current) use of aspirin; Z86.79 Personal history of other diseases of the circulatory system; Z79.51 Long term (current) use of inhaled steroids; Z79.899 Other long term (current) drug therapy
CPT/HCPCS: 58571; 36415; 80048; 80076; 81001; 81025; 85025; 85027; 85610; 85730; 86850; 86900; 88307; J7120; A4216; J2405; J3490

== ENCOUNTER → 2018-04-03 13:19 | Outpatient (CLI) | payer MEDICAID, SELFPAY ==
[2018-04-03 13:32] LABS: Hematocrit 42.1 % (37-47); Mean Corp Hgb Conc 33.3 g/gl (32-36); Mean Corpuscular Hgb 31.1 pg (27.0-32.0); Mean Corpuscular Volume 93.6 fL (81-99); White Blood Count 11.4 K/mm3 (4.4-11.0)
[2018-04-03 13:33] LABS: Mean Platelet Vol. 10.8 fl (6.2-12.0); Platelet Count 344 K/mm3 (150-450); RBC Distribution Width CV 11.5 % (11.6-14.6)
[2018-04-03 13:34] LABS: Scan Indicated on CBC? Y/N NO
== END ==
PROVIDERS: Visit Provider Obstetrics & Gynecology
DX: D72.829 Elevated white blood cell count, unspecified (principal); N39.0 Urinary tract infection, site not specified
CPT/HCPCS: 36415; 85027

== ENCOUNTER → 2018-05-22 10:26 | Outpatient (CLI) | payer MEDICAID, SELFPAY ==
[2018-05-22 11:33] LABS: Hematocrit 46.5 % (37-47); Hemoglobin 15.4 g/dl (12.0-15.0); Mean Corp Hgb Conc 33.1 g/gl (32-36); Mean Corpuscular Hgb 30.6 pg (27.0-32.0); Mean Corpuscular Volume 92.4 fL (81-99); Mean Platelet Vol. 10.5 fl (6.2-12.0); Platelet Count 255 K/mm3 (150-450); RBC Distribution Width CV 11.9 % (11.6-14.6); RBC Distribution Width SD 39.9 fl (35.1-43.9); Red Blood Count 5.03 M/mm3 (4.2-5.4); Scan Indicated on CBC? Y/N NO; White Blood Count 7.5 K/mm3 (4.4-11.0)
[2018-05-22 12:19] LABS: Anion Gap 6 (5-15); BUN 13 mg/dL (7-18); Chloride 104 mmol/L (98-107); Creatinine, Serum 0.81 mg/dL (0.55-1.02); EST Glomerular Filtration Rate 84 mL/min (>60); Est Glom Filt Rate - Afr Amer 102 mL/min (>60); Glucose 78 mg/dL (74-106); Potassium 4.1 mmol/L (3.5-5.1); Sodium Level 140 mmol/L (136-145); T4 Total, Thyroxin 8.8 ug/dL (4.8-13.9); Thyroid Stim Hormone (TSH) 1.55 uIU/mL (0.358-3.74)
== END ==
PROVIDERS: Family Provider Student in an Organized Health Care Education/Training Program; PCP Student in an Organized Health Care Education/Training Program; Visit Provider Student in an Organized Health Care Education/Training Program
DX: R00.2 Palpitations (principal); Z90.710 Acquired absence of both cervix and uterus
CPT/HCPCS: 36415; 80048; 84436; 84443; 85027

== ENCOUNTER → 2019-02-12 | Outpatient (CLI) | payer MEDICAID, SELFPAY ==
[2019-02-12 13:22] LABS: Absolute Lymphocyte Count 3.19 X10^3/ul (0.83-4.51); Absolute Neutrophil Count 7.3 X10^3/uL (2.0-7.7); Basophil# 0.08 X10^3/uL; Basophil% 0.7 % (0-1); Eosinophil# 1.01 X10^3/uL; Eosinophils% 8.2 % (0-5); Hematocrit 43.3 % (37-47); Hemoglobin 14.7 g/dl (12.0-15.0); Lymphocyte # 3.19 X10^3/ul (4.0); Mean Corp Hgb Conc 33.9 g/gl (32-36); Mean Corpuscular Hgb 30.4 pg (27.0-32.0); Mean Corpuscular Volume 89.6 fL (81-99); Mean Platelet Vol. 10.9 fl (6.2-12.0); Monocyte# 0.65 X10^3/uL; Monocyte% 5.3 % (0-10); Neutrophil # 7.33 X10^3/uL (2.7-7.7); Neutrophil % 59.6 % (47-70); Platelet Count 262 K/mm3 (150-450); RBC Distribution Width CV 11.6 % (11.6-14.6); RBC Distribution Width SD 37.3 fl (35.1-43.9); Red Blood Count 4.83 M/mm3 (4.2-5.4); White Blood Count 12.3 K/mm3 (4.4-11.0)
[2019-02-12 13:24] LABS: POSITIVE COUNT NO; POSITIVE DIFFERENTIAL NO; POSITIVE MORPHOLOGY NO
[2019-02-12 13:31] LABS: ALB/GLOB Ratio 1.6 RATIO (0.9-2.4); AST(SGOT) 14 U/L (15-37); Alanine Aminotransfer ALT/SGPT 42 U/L (13-56); Albumin, Serum 4.4 g/dL (3.2-5.0); Alkaline Phosphatase 73 U/L (45-117); Amylase 54 U/L (25-115); Anion Gap 7 (5-15); BUN 11 mg/dL (7-18); BUN/Creat Ratio 13.6 RATIO (10-20); Calcium,Total 8.9 mg/dL (8.5-10.1); Chloride 106 mmol/L (98-107); Creatinine, Serum 0.81 mg/dL (0.55-1.02); EST Glomerular Filtration Rate 84 mL/min (>60); Est Glom Filt Rate - Afr Amer 102 mL/min (>60); Globulin 2.8 g/dL (2.2-4.2); Glucose 87 mg/dL (74-106); Lipase 81 U/L (73-393); Potassium 3.9 mmol/L (3.5-5.1); Protein, Total 7.2 g/dL (6.4-8.2); Sodium Level 140 mmol/L (136-145)
== END | disposition home or self-care (01) ==
LOC: LAB 03-10 10:19
PROVIDERS: Family Provider Family Medicine; PCP Family Medicine; Referring Provider Family Medicine; Visit Provider Family Medicine
DX: R10.13 Epigastric pain (principal)
CPT/HCPCS: 36415; 80053; 82150; 83690; 85025

== ENCOUNTER 2019-03-01 16:56 | Emergency (ER) | payer MEDICAID, SELFPAY ==
[2019-03-01 16:58] VITALS: BP 142/100; PULSE 74; RESP 18; TEMP 36.3; O2SAT 99; BMI 19.5
--- NOTE | 2019-03-01 17:29 | ED.VISSUMM ---
- ER Visit Summary Date of Service: 03/01/19 Chief Complaint: Epigastric abdominal pain History of Present Illness: The patient is a 38 F history of prior aortic dissection. Prior cholecystectomy and hysterectomy. Patient had abdominal pain and problems for last 20 years since high school. She had upper and lower endoscopy years ago they thought she might have early signs of celiac but at that time had no ulcers. She has been told now that they think she might have peptic ulcer disease but she has had no recent endoscopy. She denies any hematemesis or melena. No fever. No weight loss. Basically she has daily abdominal pain associated nausea but no vomiting or diarrhea. Physical Examination: 38-year-old female no acute distress. Vital signs are stable afebrile. HEENT exam unremarkable. Tongue ring. Moist weeks membranes. Neck nontender no lymphadenopathy. Lungs clear to auscultation bilaterally. Heart regular rhythm no murmur. Abdomen is soft. Nondistended. Normal bowel sounds. She is epigastric tenderness to palpation. There is no hernia or masses. Both the right upper right lower quadrants are unremarkable. There is no signs of obstruction. Patient is moving all 4 extremities. Neurologically she is awake and alert with no focal motor deficits. Skin unremarkable. Back nontender. Test Results: CBC normal white count 12. Hemoglobin 16. Chemistries unremarkable. Normal creatinine and gap. Liver enzymes unremarkable. Lipase normal at 136. Emergency Department Course and Treatment: Patient treated with morphine and Zofran. She did not want much in the way of pain medications and only one very small dose. Repeat exam at 1830 patient is doing well. Feeling better. We discussed all of her test results. She will continue on her current medications. And follow-up either with [facility] general surgery for possible upper endoscopy or a general surgeon here at the hospital. Treatment Plan: Continue her current medications. Follow-up for possible upper endoscopy Disposition: Discharge Impression: Acute on chronic epigastric abdominal pain of uncertain etiology This note was generated with [employer] dictation software. It may contain incorrect words, spelling, and punctuation that were not noted in review of the chart prior to signing ED Disposition - Plan for ED Patient: Referrals: Carloe Darling [Primary Care Provider] -
[2019-03-01 17:35] LABS: Absolute Lymphocyte Count 3.59 X10^3/ul (0.83-4.51); Absolute Neutrophil Count 7.5 X10^3/uL (2.0-7.7); Basophil# 0.05 X10^3/uL; Basophil% 0.4 % (0-1); Eosinophil# 0.63 X10^3/uL; Hematocrit 45.8 % (37-47); Lymphocyte # 3.59 X10^3/ul (4.0); Lymphocyte % 28.4 % (19-41); Mean Corp Hgb Conc 34.9 g/gl (32-36); Mean Corpuscular Hgb 31.7 pg (27.0-32.0); Mean Corpuscular Volume 90.7 fL (81-99); Mean Platelet Vol. 10.2 fl (6.2-12.0); Monocyte# 0.81 X10^3/uL; Monocyte% 6.4 % (0-10); Neutrophil # 7.52 X10^3/uL (2.7-7.7); Neutrophil % 59.6 % (47-70); Platelet Count 265 K/mm3 (150-450); RBC Distribution Width CV 12.3 % (11.6-14.6); RBC Distribution Width SD 40.3 fl (35.1-43.9); Red Blood Count 5.05 M/mm3 (4.2-5.4); White Blood Count 12.6 K/mm3 (4.4-11.0)
[2019-03-01] MEDS: Morphine 2 MG/ML Syringe IV (17:37)
[2019-03-01] MEDS: Ondansetron 4 MG/2 ML Vial IV (17:37)
[2019-03-01 17:41] LABS: POSITIVE COUNT NO; POSITIVE DIFFERENTIAL NO; POSITIVE MORPHOLOGY NO
[2019-03-01 17:46] LABS: AST(SGOT) 21 U/L (15-37); Alanine Aminotransfer ALT/SGPT 24 U/L (13-56); Albumin, Serum 4.9 g/dL (3.2-5.0); Alkaline Phosphatase 64 U/L (45-117); Anion Gap 6 (5-15); BUN 10 mg/dL (7-18); BUN/Creat Ratio 11.4 RATIO (10-20); Bilirubin, Direct 0.25 mg/dL (0.00-0.30); Calcium,Total 9.8 mg/dL (8.5-10.1); Chloride 107 mmol/L (98-107); Creatinine, Serum 0.88 mg/dL (0.55-1.02); EST Glomerular Filtration Rate 77 mL/min (>60); Est Glom Filt Rate - Afr Amer 93 mL/min (>60); Estimated Creatinine Clearance 73.37 ml/min; Globulin 3.2 g/dL (2.2-4.2); Glucose 81 mg/dL (74-106); Lipase 136 U/L (73-393); Potassium 3.3 mmol/L (3.5-5.1); Protein, Total 8.1 g/dL (6.4-8.2); Sodium Level 140 mmol/L (136-145)
--- NOTE | 2019-03-01 18:36 | ED.DEP ---
ED Disposition - Plan for ED Patient: Disposition: Home or Assisted Living Instructions: ABDOMINAL PAIN, Unknown Cause, (Female) Referrals: Carole Darling [Primary Care Provider] - As Needed Wally Shrestha MD [STAFF PHYSICIAN] - As soon as possible Michel Jha MD [STAFF PHYSICIAN] - As soon as possible Additional Instructions: Continue your current medications. Follow-up with 1 of the local general surgeons that can evaluate you and decide if you need upper endoscopy. Both Dr. Shrestha and Dr. Sanchez from the [facility] do it. As do Dr. Jha and his associates here at the [facility].
[2019-03-01 18:50] VITALS: RESP 18
== END 2019-03-01 18:52 | disposition home or self-care (01) ==
PROVIDERS: Emergency Provider Emergency Medicine; Family Provider Family Medicine; PCP Family Medicine
DX: G89.29 Other chronic pain (principal); R10.13 Epigastric pain; I73.9 Peripheral vascular disease, unspecified; Z72.0 Tobacco use
CPT/HCPCS: 80048; 80076; 83690; 85025; 96374; 96375; 99283; A4216; J2405

== ENCOUNTER → 2019-04-09 | Outpatient (CLI) | payer MEDICAID, SELFPAY ==
[2019-04-14 16:55] LABS: HPV APTIMA, High Risk Negative (Negative)
== END | disposition home or self-care (01) ==
LOC: WOBLAB 10:25
PROVIDERS: Family Provider Family Medicine; PCP Family Medicine; Visit Provider Obstetrics & Gynecology
DX: Z12.4 Encounter for screening for malignant neoplasm of cervix (principal)
CPT/HCPCS: 87624; 88175; G0145

== ENCOUNTER 2019-05-11 11:58 | Emergency (ER) | payer MEDICAID, SELFPAY ==
[2019-05-11 11:59] VITALS: BP 121/72; PULSE 69; RESP 16; TEMP 36.3; O2SAT 100; BMI 18.8
--- NOTE | 2019-05-11 13:11 | ED.DCSUM_ITS ---
- ER Visit Summary Date of Service: 05/11/19 Chief Complaint: Concerned she is having a reaction to a single dose of Cymbalta History of Present Illness: The patient is a 38 F history of prior aortic dissection treated nonsurgically. Gastritis and reportedly has been diagnosed with small fiber neuropathy. For that reason a neurologist recently started on Cymbalta. She took a single dose of Cymbalta on Saturday. Says she has not felt well since that time. She is requesting IV fluids to flush the Cymbalta out of her system. She denies any vomiting or diarrhea. No melena. No dysuria. No fever. No chest pain or, abdominal pain or shortness of breath. States she feels sluggish. Physical Examination: Young female no acute distress. Vital signs stable afebrile. HEENT exam unremarkable. No facial droop. Moist his membranes. Neck nontender no lymphadenopathy. Lungs clear to auscultation bilaterally. Heart regular rhythm no murmur. Abdomen soft nontender. Patient moving all 4 extremities. Neurovascular intact. 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 Dorsi plantarflexion intact. Normal range of motion of the upper and lower extremities. Gait and back are unremarkable. Neurologically she has no focal motor deficits. She can get up and walk to the door without any problem. Test Results: None Emergency Department Course and Treatment: I discussed with the patient and her mother bedside that this medication should be out of her system in the next 48 hours. I explained on the IV fluids are really not changed course in any way. Plus clinically she is not dehydrated. Treatment Plan: Follow-up with her neurologist. Disposition: Discharge Impression: Malaise This note was generated with [employer] dictation software. It may contain incorrect words, spelling, and punctuation that were not noted in review of the chart prior to signing ED Disposition - Plan for ED Patient: Referrals: Carole Darling [Primary Care Provider] -
--- NOTE | 2019-05-11 13:13 | ED.DEP ---
ED Disposition - Plan for ED Patient: Disposition: Home or Assisted Living Referrals: Carole Darling [Primary Care Provider] - As Needed Additional Instructions: Follow-up with your neurologist. Plenty fluids and rest. Follow-up with your primary care physician if not improving.
== END 2019-05-11 13:23 | disposition home or self-care (01) ==
PROVIDERS: Emergency Provider Emergency Medicine; Family Provider Family Medicine; PCP Family Medicine
DX: R53.81 Other malaise (principal); T43.215A Adverse effect of selective serotonin and norepinephrine reuptake inhibitors, initial encounter; Z72.0 Tobacco use
CPT/HCPCS: 99282

== ENCOUNTER → 2020-06-21 | Outpatient (CLI) | payer MEDICAID, SELFPAY ==
[2020-06-21 10:06] LABS: Absolute Lymphocyte Count 2.35 X10^3/uL (0.83-4.51); Absolute Neutrophil Count 5.8 X10^3/uL (2.0-7.7); Basophil% 1.1 % (0-1); Eosinophil# 0.26 X10^3/uL; Eosinophils% 2.9 % (0-5); Hematocrit 48.2 % (37-47); Hemoglobin 15.6 g/dL (12.0-15.0); Lymphocyte # 2.35 X10^3/ul (4.0); Lymphocyte % 25.9 % (19-41); Mean Corp Hgb Conc 32.4 g/dL (32-36); Mean Corpuscular Hgb 30.2 pg (27.0-32.0); Mean Corpuscular Volume 93.4 fL (81-99); Mean Platelet Vol. 10.6 fl (6.2-12.0); Monocyte# 0.53 X10^3/uL; Monocyte% 5.8 % (0-10); NRBC Flagged by Analyzer 0 % (0-5); Neutrophil # 5.81 X10^3/uL (2.7-7.7); Platelet Count 290 K/mm3 (150-450); RBC Distribution Width CV 11.6 % (11.6-14.6); RBC Distribution Width SD 39.8 fl (35.1-43.9); Red Blood Count 5.16 M/mm3 (4.2-5.4); White Blood Count 9.1 K/mm3 (4.4-11.0)
[2020-06-21 11:15] LABS: Hemoglobin A1c 4.8 % (3.8-5.6)
[2020-06-21 12:01] LABS: ALB/GLOB Ratio 1.4 RATIO (0.9-2.4); AST(SGOT) 14 U/L (15-37); Alanine Aminotransfer ALT/SGPT 27 U/L (13-56); Albumin, Serum 4.8 g/dL (3.2-5.0); Alkaline Phosphatase 68 U/L (45-117); Anion Gap 6 (5-15); BUN 13 mg/dL (7-18); BUN/Creat Ratio 14.2 RATIO (10-20); Chloride 104 mmol/L (98-107); Cholesterol 196 mg/dL (200); Creatinine, Serum 0.91 mg/dL (0.55-1.02); EST Glomerular Filtration Rate 73 mL/min (>60); Est Glom Filt Rate - Afr Amer 88 mL/min (>60); Follicle Stimulating Hormone 3.4 mIU/mL; Globulin 3.5 g/dL (2.2-4.2); Glucose 84 mg/dL (74-106); High Density Lipoprotein 66 mg/dL; Protein, Total 8.3 g/dL (6.4-8.2); Sodium Level 138 mmol/L (136-145); T3 Uptake 37 % (30-39); T4 Free Direct 0.99 ng/dL (0.76-1.46); T4 Total, Thyroxin 8.8 ug/dL (4.8-13.9); T7 / Free Thyroxin Index 3.3 (1.4-4.5); Thyroid Stim Hormone (TSH) 1.74 uIU/mL (0.358-3.74); Triglycerides 97 mg/dL; Very Low Density Lipoprotein 19 mg/dL (5-40)
[2020-06-21 13:09] LABS: Vitamin B12 844 pg/mL (211-911); Vitamin D,25 Hydroxy 20.6 ng/mL
[2020-06-22 12:08] LABS: Thyroid Peroxidase AB 44 IU/mL (0-34)
== END | disposition home or self-care (01) ==
LOC: LAB 08:59
PROVIDERS: PCP Nurse Practitioner Family; Referring Provider Nurse Practitioner Family; Visit Provider Nurse Practitioner Family
DX: E34.9 Endocrine disorder, unspecified (principal); E55.9 Vitamin D deficiency, unspecified; E53.8 Deficiency of other specified B group vitamins; E06.3 Autoimmune thyroiditis; R42 Dizziness and giddiness; Z13.1 Encounter for screening for diabetes mellitus; Z13.220 Encounter for screening for lipoid disorders; Z13.6 Encounter for screening for cardiovascular disorders
CPT/HCPCS: 36415; 80053; 80061; 82306; 82607; 82670; 83001; 83036; 83090; 84403; 84436; 84439; 84443; 84479; 85025; 86376

== ENCOUNTER → 2021-05-25 10:26 | Outpatient (CLI) | payer MEDICAID, SELFPAY ==
--- NOTE | 2021-05-25 10:28 | BI_ITS ---
MAMMOGRAPHY - BILATERAL SCREENING REASON FOR EXAM: Female, 40 years old. Routine annual screening examination. PERTINENT HISTORY: Remote left needle biopsy. TECHNIQUE: Digital bilateral breast nolan (3D mammographic acquisition) in the CC and MLO projections. 2-D mediolateral oblique (MLO) and craniocaudad (CC) views of both breasts were obtained. CAD: Full Field Digital Mammography with Computer Added Detection was performed. COMPARISON: Comparison is made with prior outside examination dated 06/06/2010. FINDINGS: Breast Composition: The breasts are extremely dense, which lowers the sensitivity of mammography. There are no dominant masses or suspicious calcifications. A tissue clip marker is seen within the deep upper medial aspect of the left breast. No other significant abnormalities are identified. There has been no significant change since the prior study. BI/SCRN MAMM (CAD)W/NOLAN BILAT IMPRESSION: Stable bilateral screening mammogram. Yearly follow-up mammogram recommended. (A) ASSESSMENT CATEGORY: BIRADS Category 2: Benign. A letter regarding these results will be sent to the patient by the facility within 30 days. Approximately 10% of breast cancers are not detected by mammography. A normal mammogram should not delay biopsy of a clinically suspicious abnormality. [id number] Electronically Signed: Angel Ramon MD at 12:05 EDT , Service support ,
== END ==
PROVIDERS: PCP Nurse Practitioner Family; Referring Provider Obstetrics & Gynecology; Visit Provider Obstetrics & Gynecology
DX: Z12.31 Encounter for screening mammogram for malignant neoplasm of breast (principal)
CPT/HCPCS: 77063; 77067

== ENCOUNTER → 2021-06-22 11:00 | Outpatient (CLI) | payer MEDICAID, SELFPAY ==
[2021-06-22 11:56] LABS: Hematocrit 45.4 % (37-47); Mean Corpuscular Hgb 30.2 pg (27.0-32.0); Mean Corpuscular Volume 91.5 fL (81-99); Mean Platelet Vol. 10.7 fl (6.2-12.0); Platelet Count 253 K/mm3 (150-450); RBC Distribution Width CV 12.1 % (11.6-14.6); RBC Distribution Width SD 40.2 fl (35.1-43.9); Red Blood Count 4.96 M/mm3 (4.2-5.4); White Blood Count 8.2 K/mm3 (4.4-11.0)
[2021-06-22 12:31] LABS: ALB/GLOB Ratio 1.3 RATIO (0.9-2.4); AST(SGOT) 12 U/L (15-37); Alanine Aminotransfer ALT/SGPT 15 U/L (13-56); Albumin, Serum 4.3 g/dL (3.2-5.0); Alkaline Phosphatase 71 U/L (45-117); Anion Gap 4 (5-15); BUN 12 mg/dL (7-18); BUN/Creat Ratio 15.9 RATIO (10-20); Chloride 104 mmol/L (98-107); Cholesterol 167 mg/dL (200); Creatinine, Serum 0.76 mg/dL (0.55-1.02); EST Glomerular Filtration Rate 90 mL/min (>60); Est Glom Filt Rate - Afr Amer 109 mL/min (>60); Globulin 3.4 g/dL (2.2-4.2); Glucose 84 mg/dL (74-106); High Density Lipoprotein 55 mg/dL; Potassium 4.1 mmol/L (3.5-5.1); Protein, Total 7.7 g/dL (6.4-8.2); Sodium Level 138 mmol/L (136-145); Thyroid Stim Hormone (TSH) 1.93 uIU/mL (0.358-3.74); Triglycerides 126 mg/dL; Very Low Density Lipoprotein 25 mg/dL (5-40)
[2021-06-24 13:47] LABS: Thyroid Stim Immunoglob 0.16 IU/L (0.00-0.55)
== END ==
PROVIDERS: PCP Nurse Practitioner Family; Visit Provider Nurse Practitioner Family
DX: E06.3 Autoimmune thyroiditis (principal); I72.9 Aneurysm of unspecified site; F41.9 Anxiety disorder, unspecified; Z13.220 Encounter for screening for lipoid disorders
CPT/HCPCS: 36415; 80053; 80061; 84439; 84443; 84445; 85027

== ENCOUNTER → 2021-07-04 07:55 | Outpatient (CLI) | payer MEDICAID, SELFPAY ==
--- NOTE | 2021-07-04 07:59 | ECHOD_ITS ---
Reason For Study: TACHYCARDIA Procedure This was a 2D Doppler, Color Flow transthoracic echocardiogram. The study was technically difficult. Exam performed in department. Left Ventricle Normal LV size. Left ventricular systolic function is normal. The estimated ejection fraction is 60 %. No evidence for diastolic dysfunction. No regional wall motion abnormalities noted. Right Ventricle Normal RV size. Normal systolic function. Atria Normal left atrium. Normal right atrium. No doppler evidence for ASD. Mitral Valve There is no mitral annular calcification. Mild diffuse mitral valve thickening. Mild (1+) mitral valve insufficiency. Tricuspid Valve Normal tricuspid valve. Trivial tricuspid valve insufficiency. Right ventricular systolic pressure estimated to be 19 mmHg. Aortic Valve Trisinus/trileaflet aortic valve. Normal aortic valve. Pulmonic Valve The pulmonic valve is not well visualized. Trivial pulmonic valve insufficiency. Great Vessels Normal sized aortic root. Pericardium/Pleural No pericardial effusion. MMode/2D Measurements & Calculations LVIDd: 3.8 cm IVSd: 0.51 cm Ao root diam: 2.8 cm LVIDs: 2.8 cm LVPWd: 0.46 cm RVDd: 3.6 cm FS: 26.2 % LAV(MOD-bp): 22.0 ml LVAd ap4: 19.8 cm2 LVAd ap2: 23.0 cm2 LAV(MOD-bp) Indexed: 13.5 ml/m2 LVLd ap4: 6.8 cm LVLd ap2: 7.0 cm LAV(MOD-sp2): 19.2 ml EDV(MOD-sp4): 49.3 ml EDV(MOD-sp2): 63.5 ml LAV(MOD-sp4): 25.3 ml EDV(sp4-el): 48.9 ml EDV(sp2-el): 63.8 ml LVAs ap4: 11.0 cm2 LVAs ap2: 10.9 cm2 LVLs ap4: 4.9 cm LVLs ap2: 5.2 cm ESV(MOD-sp4): 21.6 ml ESV(MOD-sp2): 19.5 ml ESV(sp4-el): 20.9 ml ESV(sp2-el): 19.5 ml EF(MOD-sp4): 56.2 % EF(MOD-sp2): 69.3 % EF(sp4-el): 57.3 % SV(MOD-sp4): 27.7 ml SV(MOD-sp2): 44.0 ml SV(sp4-el): 28.0 ml LA dimension(2D): 2.4 cm LA A4 area: 11.8 cm2 RA A4 area: 10.2 cm2 Doppler Measurements & Calculations MV E max nhan: 79.3 cm/sec Lat Peak E' Nhan: 16.2 cm/sec Med Peak E' Nhan: 12.5 cm/sec MV A max nhan: 58.6 cm/sec E/E' lat: 4.9 E/E' med: 6.3 MV E/A: 1.4 Ao V2 max: 116.5 cm/sec LV V1 max: 88.4 cm/sec TR max nhan: 198.2 cm/sec Ao max P.4 mmHg LV V1 max P.1 mmHg TR max P.8 mmHg ECHO/Echo Complete Interpretation Summary The study was technically difficult. Left ventricular systolic function is normal. The estimated ejection fraction is 60 %. Mild diffuse mitral valve thickening. Mild (1+) mitral valve insufficiency. Trivial tricuspid valve insufficiency. Trivial pulmonic valve insufficiency. Right ventricular systolic pressure estimated to be 19 mmHg. No evidence for diastolic dysfunction. Ordering Physician: Mihir Sam Referring Physician: MIHIR SAM Performed By: Sybil Perez, RDCS, RVT
== END ==
PROVIDERS: PCP Nurse Practitioner Family; Referring Provider Nurse Practitioner Family; Visit Provider Nurse Practitioner Family
DX: R00.0 Tachycardia, unspecified (principal)
CPT/HCPCS: 93306

== ENCOUNTER → 2022-01-19 | Outpatient (CLI) | payer MEDICAID, SELFPAY ==
[2022-01-19 11:22] LABS: Hematocrit 45.5 % (37-47); Hemoglobin 14.8 g/dL (12.0-15.0); Mean Corp Hgb Conc 32.5 g/dL (32-36); Mean Corpuscular Hgb 30.2 pg (27.0-32.0); Mean Corpuscular Volume 92.9 fL (81-99); Mean Platelet Vol. 10.3 fl (6.2-12.0); Platelet Count 312 K/mm3 (150-450); RBC Distribution Width CV 11.9 % (11.6-14.6); RBC Distribution Width SD 40.6 fl (35.1-43.9); White Blood Count 9.4 K/mm3 (4.4-11.0)
[2022-01-19 11:46] LABS: ALB/GLOB Ratio 1.4 RATIO (0.9-2.4); AST(SGOT) 12 U/L (15-37); Alanine Aminotransfer ALT/SGPT 20 U/L (13-56); Albumin, Serum 4.4 g/dL (3.2-5.0); Alkaline Phosphatase 66 U/L (45-117); Anion Gap 4 (5-15); BUN 15 mg/dL (7-18); BUN/Creat Ratio 18.4 RATIO (10-20); CPK Total, Creatine Kinase 103 U/L (26-192); Calcium,Total 8.9 mg/dL (8.5-10.1); Chloride 105 mmol/L (98-107); Creatinine, Serum 0.82 mg/dL (0.55-1.02); EST Glomerular Filtration Rate 82 mL/min (>60); Est Glom Filt Rate - Afr Amer 100 mL/min (>60); Globulin 3.2 g/dL (2.2-4.2); Glucose 97 mg/dL (74-106); Magnesium 2.1 mg/dL (1.6-2.6); Phosphorus 3.3 mg/dL (2.5-4.9); Potassium 4.1 mmol/L (3.5-5.1); Protein, Total 7.6 g/dL (6.4-8.2); Sodium Level 137 mmol/L (136-145); T4 Free Direct 0.99 ng/dL (0.76-1.46); Thyroid Stim Hormone (TSH) 2.05 uIU/mL (0.358-3.74)
[2022-01-20 13:10] LABS: Adrenocorticotropic Hormone 13.1 pg/mL (7.2-63.3)
== END | disposition home or self-care (01) ==
LOC: LAB 10:47
PROVIDERS: PCP Nurse Practitioner Family; Referring Provider Nurse Practitioner Family; Visit Provider Nurse Practitioner Family
DX: R25.2 Cramp and spasm (principal); G43.909 Migraine, unspecified, not intractable, without status migrainosus; K21.9 Gastro-esophageal reflux disease without esophagitis; R00.0 Tachycardia, unspecified; M79.10 Myalgia, unspecified site
CPT/HCPCS: 36415; 80053; 82024; 82550; 83735; 84100; 84439; 84443; 85027

== ENCOUNTER → 2022-07-26 | Outpatient (CLI) | payer MEDICAID, SELFPAY ==
[2022-07-26 12:26] LABS: Hematocrit 46.7 % (37-47); Hemoglobin 15.2 g/dL (12.0-15.0); Mean Corp Hgb Conc 32.5 g/dL (32-36); Mean Corpuscular Hgb 30.3 pg (27.0-32.0); Mean Platelet Vol. 10.6 fl (6.2-12.0); Platelet Count 275 K/mm3 (150-450); RBC Distribution Width SD 41.1 fl (35.1-43.9); Red Blood Count 5.02 M/mm3 (4.2-5.4); White Blood Count 9.3 K/mm3 (4.4-11.0)
[2022-07-26 14:36] LABS: ALB/GLOB Ratio 1.2 RATIO (0.9-2.4); AST(SGOT) 12 U/L (15-37); Alanine Aminotransfer ALT/SGPT 19 U/L (13-56); Albumin, Serum 4.4 g/dL (3.2-5.0); Alkaline Phosphatase 78 U/L (45-117); Anion Gap 8 (5-15); BUN 13 mg/dL (7-18); BUN/Creat Ratio 17.2 RATIO (10-20); Calcium,Total 8.8 mg/dL (8.5-10.1); Chloride 107 mmol/L (98-107); Cholesterol 229 mg/dL (200); Creatinine, Serum 0.75 mg/dL (0.55-1.02); EST Glomerular Filtration Rate 90 mL/min (>60); Est Glom Filt Rate - Afr Amer 109 mL/min (>60); Globulin 3.6 g/dL (2.2-4.2); Glucose 108 mg/dL (74-106); High Density Lipoprotein 53 mg/dL; Potassium 3.5 mmol/L (3.5-5.1); Sodium Level 138 mmol/L (136-145); T4 Free Direct 0.97 ng/dL (0.76-1.46); T4 Total, Thyroxin 11.2 ug/dL (4.8-13.9); Thyroid Stim Hormone (TSH) 2.28 uIU/mL (0.358-3.74); Triglycerides 94 mg/dL; Very Low Density Lipoprotein 19 mg/dL (5-40)
[2022-07-28 07:37] LABS: Anti-Thyroglobulin AB < 1.0 IU/mL (0.0-0.9); Thyroglobulin, Serum Qt. 14.1 ng/mL (1.5-38.5); Thyroid Peroxidase AB 101 IU/mL (0-34)
== END | disposition home or self-care (01) ==
PROVIDERS: PCP Nurse Practitioner Family; Visit Provider Nurse Practitioner Family
DX: E06.3 Autoimmune thyroiditis (principal); R61 Generalized hyperhidrosis; Z13.220 Encounter for screening for lipoid disorders; J45.909 Unspecified asthma, uncomplicated
CPT/HCPCS: 36415; 80053; 80061; 84432; 84436; 84439; 84443; 85027; 86376; 86800

== ENCOUNTER → 2022-08-21 | Outpatient (CLI) | payer MEDICAID, SELFPAY ==
[2022-08-29 14:17] LABS: HLA B27 Negative (.)
== END | disposition home or self-care (01) ==
PROVIDERS: PCP Nurse Practitioner Family; Referring Provider Psychiatry & Neurology Neurology; Visit Provider Psychiatry & Neurology Neurology
DX: G47.19 Other hypersomnia (principal)
CPT/HCPCS: 36415; 81374

== ENCOUNTER → 2022-11-20 | Outpatient (CLI) | payer MEDICAID, SELFPAY ==
--- NOTE | 2022-11-20 12:37 | BI_ITS ---
MAMMOGRAPHY - BILATERAL SCREENING 3-D TOMOSYNTHESIS REASON FOR EXAM: Female, 42 years old. Routine screening PERTINENT HISTORY: No significant family history. Previous needle biopsy TECHNIQUE: 2-D mammograms and 3-D Tomosynthesis of the breast (s) were performed. CAD was performed. COMPARISON: 05/25/2021 FINDINGS: The breast composition: Breasts are extremely dense, which lowers the sensitivity of mammography. Scattered benign calcifications are seen. No dense spiculated masses or suspicious microcalcifications are identified. No architectural distortion is identified. There is no skin thickening or retraction. There has been no significant change since the prior study. BI/SCRN MAMM (CAD)W/NOLAN BILAT IMPRESSION: No mammographic signs of malignancy. Routine yearly mammograms recommended. ASSESSMENT CATEGORY: BIRADS Category 2: Benign. A letter regarding these results will be sent to the patient by the facility within 30 days. FOLLOW UP RECOMMENDATION: Yearly follow up mammogram recommended. (A) Approximately 10% of breast cancers are not detected by mammography. A normal mammogram should not delay biopsy of a clinically suspicious abnormality. Electronically Signed: Ryder Pelaez MD at 13:24 EDT ,
== END | disposition home or self-care (01) ==
LOC: OPBI 12:35
PROVIDERS: PCP Nurse Practitioner Family; Referring Provider Obstetrics & Gynecology; Visit Provider Obstetrics & Gynecology
DX: Z12.31 Encounter for screening mammogram for malignant neoplasm of breast (principal)
CPT/HCPCS: 77063; 77067

== ENCOUNTER → 2023-01-17 | Outpatient (CLI) | payer MEDICAID, SELFPAY ==
[2023-01-17 11:22] LABS: Absolute Lymphocyte Count 2.37 X10^3/uL (0.83-4.51); Absolute Neutrophil Count 5.6 X10^3/uL (2.0-7.7); Basophil# 0.08 X10^3/uL; Basophil% 0.9 % (0-1); Eosinophil# 0.19 X10^3/uL; Eosinophils% 2.2 % (0-5); Hematocrit 45.3 % (37-47); Hemoglobin 14.5 g/dL (12.0-15.0); Lymphocyte # 2.37 X10^3/ul (0.83-4.51); Mean Corpuscular Volume 93.8 fL (81-99); Mean Platelet Vol. 10.7 fl (6.2-12.0); Monocyte# 0.47 X10^3/uL; Monocyte% 5.4 % (0-10); NRBC Flagged by Analyzer 0 % (0-5); Neutrophil # 5.63 X10^3/uL (2.7-7.7); Platelet Count 260 K/mm3 (150-450); RBC Distribution Width CV 12.2 % (11.6-14.6); RBC Distribution Width SD 42.4 fl (35.1-43.9); Red Blood Count 4.83 M/mm3 (4.2-5.4); White Blood Count 8.8 K/mm3 (4.4-11.0)
[2023-01-17 11:56] LABS: ALB/GLOB Ratio 1.3 RATIO (0.9-2.4); AST(SGOT) 14 U/L (15-37); Alanine Aminotransfer ALT/SGPT 18 U/L (13-56); Albumin, Serum 4.1 g/dL (3.2-5.0); Alkaline Phosphatase 73 U/L (45-117); Anion Gap 7 (5-15); BUN 11 mg/dL (7-18); BUN/Creat Ratio 13.2 RATIO (10-20); Bilirubin, Direct 0.07 mg/dL (0.00-0.30); Calcium,Total 8.8 mg/dL (8.5-10.1); Chloride 105 mmol/L (98-107); Cholesterol 197 mg/dL (200); Creatinine, Serum 0.84 mg/dL (0.55-1.02); EST Glomerular Filtration Rate 80 mL/min (>60); Est Glom Filt Rate - Afr Amer 97 mL/min (>60); Globulin 3.2 g/dL (2.2-4.2); Glucose 111 mg/dL (74-106); High Density Lipoprotein 47 mg/dL; Magnesium 2.2 mg/dL (1.6-2.6); Potassium 3.8 mmol/L (3.5-5.1); Protein, Total 7.3 g/dL (6.4-8.2); Sodium Level 139 mmol/L (136-145); T4 Free Direct 0.75 ng/dL (0.76-1.46); Thyroid Stim Hormone (TSH) 2.13 uIU/mL (0.358-3.74); Triglycerides 110 mg/dL; Very Low Density Lipoprotein 22 mg/dL (5-40)
== END | disposition home or self-care (01) ==
LOC: LAB 10:52
PROVIDERS: PCP Nurse Practitioner Family; Visit Provider Nurse Practitioner Family
DX: E78.5 Hyperlipidemia, unspecified (principal); E06.3 Autoimmune thyroiditis; M79.10 Myalgia, unspecified site; G51.32 Clonic hemifacial spasm, left
CPT/HCPCS: 36415; 80053; 80061; 82248; 83735; 84439; 84443; 85025

== ENCOUNTER → 2023-12-07 | Outpatient (CLI) | payer MEDICAID, SELFPAY ==
--- NOTE | 2023-12-07 10:45 | RAD_ITS ---
EXAM: XR THORACIC SPINE, 2 VIEWS CLINICAL INDICATION: BACK PAIN TECHNIQUE: Frontal and lateral views of the thoracic spine. COMPARISON: No relevant prior studies available. FINDINGS: VERTEBRAE: Unremarkable. Preserved vertebral body height. No fracture. No spondylolisthesis. Preservation of the normal thoracic kyphosis. No significant facet arthropathy. DISC SPACES: Unremarkable. Disc spaces are maintained. RAD/Thoracic Spine 2 Views IMPRESSION: No evidence of thoracic spinal fracture or spondylolisthesis. Electronically Signed: Papa Mcdaniel MD at 20:17 EDT ,
--- NOTE | 2023-12-07 10:45 | RAD_ITS ---
STUDY: X-RAY - CERVICAL SPINE REASON FOR EXAM: Female, 43 years old. NECK PAIN TECHNIQUE: XR Spine Cervical 4 or 5 Views COMPARISON: None FINDINGS: Normal anterior atlantoaxial articulation. Normal odontoid process. There is straightening of the normal cervical lordosis. There is multi-level endplate spondylosis. Normal disc space heights. Normal visualized intervertebral neuroforamina. The soft tissue structures are unremarkable. RAD/Cerv Spine 2 or 3 Views IMPRESSION: There is altered curvature of the normal cervical lordosis. This can suggest neck strain. Electronically Signed: Papa Mcdaniel MD at 20:17 EDT ,
--- NOTE | 2023-12-07 10:45 | RAD_ITS ---
INDICATION: BACK PAIN EXAMINATION/TECHNIQUE: X-RAY - XR Spine Lumbar Min 4 Views COMPARISON: None. FINDINGS: VERTEBRAE: Vertebral body height is maintained, there is a subtle dextroscoliotic curvature. No fractures or destructive bony process noted. Normal appearance the visualized pelvic ring. No spondylolisthesis. Preservation of the normal lumbar lordosis. No significant facet arthropathy. DISCS: Disc spaces are maintained. INCLUDED ABDOMEN: Included bowel gas pattern is non-obstructive. RAD/L/S Spine Min 4 Views IMPRESSION: 1. Mild dextroscoliotic curvature. 2. No acute fractures or destructive bony process. Electronically Signed: Wally Baxter MD at 23:31 EDT ,
[2023-12-07 10:48] LABS: Hematocrit 44.5 % (37-47); Hemoglobin 14.8 g/dL (12.0-15.0); Mean Corp Hgb Conc 33.3 g/dL (32-36); Mean Corpuscular Hgb 30.5 pg (27.0-32.0); Mean Corpuscular Volume 91.8 fL (81-99); Mean Platelet Vol. 10.5 fl (6.2-12.0); Platelet Count 284 K/mm3 (150-450); RBC Distribution Width CV 11.7 % (11.6-14.6); RBC Distribution Width SD 39.5 fl (35.1-43.9); Red Blood Count 4.85 M/mm3 (4.2-5.4); White Blood Count 7.9 K/mm3 (4.4-11.0)
[2023-12-07 11:26] LABS: ALB/GLOB Ratio 1.4 RATIO (0.9-2.4); AST(SGOT) 9 U/L (15-37); Alanine Aminotransfer ALT/SGPT 15 U/L (13-56); Albumin, Serum 4.2 g/dL (3.2-5.0); Alkaline Phosphatase 75 U/L (45-117); Anion Gap 4 (5-15); BUN 15 mg/dL (7-18); BUN/Creat Ratio 16.5 RATIO (10-20); Calcium,Total 9.1 mg/dL (8.5-10.1); Chloride 108 mmol/L (98-107); Cholesterol 213 mg/dL (200); Creatinine, Serum 0.91 mg/dL (0.55-1.02); EST Glomerular Filtration Rate 72 mL/min (>60); Est Glom Filt Rate - Afr Amer 88 mL/min (>60); Glucose 85 mg/dL (74-106); High Density Lipoprotein 54 mg/dL; Potassium 3.6 mmol/L (3.5-5.1); Protein, Total 7.2 g/dL (6.4-8.2); Sodium Level 138 mmol/L (136-145); T4 Free Direct 0.81 ng/dL (0.76-1.46); Triglycerides 101 mg/dL; Very Low Density Lipoprotein 20 mg/dL (5-40)
== END | disposition home or self-care (01) ==
LOC: LAB 10:20
PROVIDERS: PCP Nurse Practitioner Family; Referring Provider Nurse Practitioner Family; Visit Provider Nurse Practitioner Family
DX: R23.2 Flushing (principal); M54.9 Dorsalgia, unspecified; E78.5 Hyperlipidemia, unspecified
CPT/HCPCS: 36415; 72040; 72070; 72110; 80053; 80061; 82024; 83002; 84439; 84443; 85027